=== PATIENT | male | born 1950 | race Caucasian/White ===

== ENCOUNTER → 2016-12-07 07:31 | Outpatient (CLI) | payer MEDICARE, OTHER ==
[2012-07-17 06:18] VITALS: BMI 38.0
== END | disposition home or self-care (01) ==
LOC: D.CT 07:31
DX: J39.8 Other specified diseases of upper respiratory tract (principal)

== ENCOUNTER 2019-05-01 11:21 | Emergency (ER) | payer MEDICARE, OTHER ==
[~2019-05-01] VITALS: Ht 182.9 cm; Wt 113.6 kg
[2019-05-01 11:29] VITALS: Ht 182.9 cm; Wt 113.6 kg
[2019-05-01] MEDS ORDERED: DEXILANT30 MG PO (11:32)
[2019-05-01] MEDS ORDERED: ADIPEX-P37.5 M1 PO (11:32)
[2019-05-01] MEDS ORDERED: NORVASC2.5 MG PO (11:32)
[2019-05-01 11:53] LABS: BASOPHILS 0.1 % (0-2); EOSINOPHILS 0.8 % (0-7); HEMATOCRIT 46.8 % (42.0-54.0); HEMOGLOBIN 16.4 g/dL (13.5-17.5); IMMATURE GRANULOCYTES 0.8 % (0-5); LYMPHOCYTES 15.1 % (15-50); MCH 32.7 pg (26.0-34.0); MCV 93.2 fL (80.0-100.0); MEAN PLATELET VOLUME 10.2 fL (7.4-10.4); NEUTROPHILS 71.2 % (40-80); PLATELET COUNT 190 10x3/uL (130-400); RBC 5.02 10x6/uL (4.20-6.10); RDW 13.2 % (11.5-14.5); WBC 7.9 10x3/uL (4.8-10.8)
[2019-05-01 12:05] LABS: ALBUMIN 3.3 g/dL (3.4-5.0); ALKALINE PHOSPHATASE 63 U/L (46-116); ALT (SGPT) 24 U/L (10-68); APTT 28.8 SECONDS (22.8-39.4); BILIRUBIN - TOTAL 0.63 mg/dL (0.2-1.3); CALC OSMOLALITY 276 mosm/kg (275-300); CALCIUM 8.1 mg/dL (8.5-10.1); CARBON DIOXIDE 30.3 mmol/L (21.0-32.0); CHLORIDE - SERUM 103 mmol/L (98-107); CREATININE - SERUM 1.1 mg/dL (0.6-1.3); GLUCOSE 96 mg/dL (74-106); INR 1.04 (0.85-1.17); POTASSIUM - SERUM 3.9 mmol/L (3.5-5.1); PROTEIN - SERUM 6.7 g/dL (6.4-8.2); PROTIME 13.1 SECONDS (11.6-15.0); SODIUM 138 mmol/L (136-145); UREA NITROGEN 16 mg/dL (7-18); eGFR NON AFRICAN AMERICAN 71 mL/min (90-120)
[2019-05-01 12:17] LABS: CKMB 1.2 U/L (0.0-3.6); CREATINE KINASE 64 UL (21-232)
[2019-05-01 12:19] LABS: TROPONIN-I < 0.017 ng/mL (0.000-0.060)
[2019-05-01 13:02] VITALS: BP 141/84
--- NOTE | 2019-05-04 14:34 | EC ---
PATIENT:FER TREVIÑO DATE OF SERVICE: 05/01/19 SEX: M MEDICAL RECORD: [id number] DATE OF : [birth year] LOCATION:D.ER AGE OF PATIENT: 68 ADMISSION DATE: 05/01/19 REFERRING PHYSICIAN: INTERPRETING PHYSICIAN: GIN BOLIVAR MD ECHOCARDIOGRAM REPORT ECHO CHARGES 4 ECHO COMPLETE Date: 05/01/19 CLINICAL DIAGNOSIS: ABNORMAL EKG ECHOCARDIOGRAPHIC MEASUREMENTS (adult normal given) AC root (d.<3.7cm) 4.1 cm LV Septum d (<1.2 cm> 1.4 cm Valve Excursion 2.3 cm LV Septum (systole) 1.8 cm Left Atria (s.<4.0cm> 4.0 cm LVPW d(<1.2cm) 1.2 cm RV (d.<2.3cm) 2.3 cm LVPW (sytole) 1.9 cm LV diastole(<5.6CM) 7.0 cm MV E-F(>70mm/sec) cm LV systole 5.2 cm LVOT Diameter 2.4 cm MV exc.(>10mm) cm Est.ejection fraction (50-75%) % DOPPLER: LVIT cm/sec A 103 cm/sec E 80.0 cm/sec LA cm/sec RVSP 28.1 mmHg LVOT 71.0 cm/sec AOP1/2T m/s Asc. Ao 133 cm/sec RVOT 62.0 cm/sec RA cm/sec PA 73.0 cm/sec AV Gradient Peak 7.1 mmHg AV Mean 4.2 mmHg AV Area 2.8 cm MV Gradient Peak 6.6 mmHg MV Mean 2.8 mmHg MV Area cm COMMENTS: Wet Suit Gluer: 1 FREDI ALVESOE Triage Specialist: 1 Dr. Bolivar TAPE# PACS Pericardial Effusion N DATE OF SERVICE: FINDINGS: 1. Left ventricular chamber size is dilated. Left ventricular systolic function is markedly reduced at 20%. 2. Left atrium is at the upper limits of normal at 4.0 cm. Right atrium and right ventricular chamber sizes are moderately dilated. 3. Valvular structures: Aortic valve demonstrates calcific aortic sclerosis but no significant aortic stenosis is present. Remaining valvular structures have normal structure and motion. ECHOCARDIOGRAM REPORT [id number] FER TREVIÑO 4. Doppler interrogation reveals moderate mitral regurgitation, no other valvular insufficiency or stenosis. Pulmonary systolic pressure is estimated at 28 mmHg. 5. Inferior vena cava is dilated and there does appear to be thrombus in the inferior vena cava. 6. No evidence of pericardial effusion or left ventricular thrombus. TRANSINT:[id number] Voice Confirmation ID: [id number] DOCUMENT ID: [id number] GIN BOLIVAR MD at 1434 CC: MAGALY PRITCHARD [id number] DICTATION DATE: 05/01/19 1437 LENS BLANK GAUGER: 05/02/19 0007 DEP ER 05/01/19 [facility] [address] [place] [address]
--- NOTE | 2019-05-04 14:34 | CN ---
PATIENT NAME:FER TREVIÑO MEDICAL RECORD: [id number] : 52 LOCATION:.ER ADMIT DATE: ACCOUNT: [id number] CONSULTING PHYSICIAN: GIN VELAZQUEZ MD REFERRING PHYSICIAN: ARASH PATEL MD DATE OF CONSULTATION: 05/01/2019 CARDIOLOGY CONSULT DIAGNOSES: 1. Shortness of breath -- dyspnea on exertion. 2. Hypertension. 3. Tachycardia. 4. Abnormal ECG. HISTORY OF PRESENT ILLNESS: This is a gentleman who was seen by Dr. Vargas today, sent to the Emergency Room. He had 2-3 week history of shortness of breath. His EKG is with a left bundle branch block. We have no old EKG for comparison. He is not having any chest pain or chest discomfort. Heart rate is in the 100 range, sinus tachycardia. Systolic blood pressures in the 140-160 range. He is only on Norvasc 2.5 mg every day. FAMILY HISTORY: Noncontributory from a cardiovascular standpoint, but does have a positive family history of hypertension. SOCIAL HISTORY: He works as a [employer]. He is a nonsmoker, nondrinker. REVIEW OF SYSTEMS: The patient reports easy bruising but reports no swollen glands. The patient reports no fever, no night sweats, no significant weight gain, no significant weight loss. No significant exercise tolerance. The patient reports no dry eyes, no irritation, no vision change. Patient reports no difficulty hearing and no ear pain. Patient reports no frequent nose bleeds or nose and sinus problems. Patient reports on arm pain on exertion. No shortness of breath while lying down. No history of heart murmur. Patient reports no cough, no wheezing or coughing up blood. Patient reports no abdominal pain, no vomiting. Normal appetite. No diarrhea and not vomiting blood. No nausea and no constipation. Patient reports no incontinence. No difficulty urinating. No hematuria. No increased frequency. Patient reports no muscle aches. No weakness, no arthralgias, no back pain. No swelling of the extremities. Patient reports no abnormal mole, no jaundice, no rashes. Reports no loss of consciousness. No weakness and no numbness. No seizures, dizziness, or headaches. The patient reports no depression, no sleep disturbance, feeling safe in a relationship and no alcohol abuse. Patient reports on fatigue. Reports no runny nose or sinus pressure. No itching, no hives, and no frequent sneezing. PHYSICAL EXAMINATION: CONSTITUTIONAL/GENERAL APPEARANCE: Well nourished, well developed, appears stated age. EYES: Lids and conjunctivae noninjected. No discharge. No pallor. ENT: Lips within normal limit. No cyanosis. No pallor. NECK: Carotid arteries, bilateral normal upstroke. No bruits. No thrills. No jugular venous pressure or distention. CERVICAL LYMPH NODES: Nontender. Nonenlarged. THYROID: Not enlarged. No nodules. CONSULT REPORT [id number] FER TREVIÑO CARDIOVASCULAR: Precordial exam, nondisplaced. No heaves or pericardial thrills. Rate and rhythm, regular. Heart sounds, normal S1, normal S2. No S3, no gallop, no rub. Systolic murmur, not heard. Diastolic murmur, not heard. RESPIRATORY: Respiratory effort, unlabored. Normal curvature. No thoracic deformity. No chest wall tenderness. Percussion, resonant. Auscultation, clear. No wheezes, no rales, no rhonchi. ABDOMEN: Soft, nondistended, nontender. No abdominal pain, no vomiting and normal appetite. MUSCULOSKELETAL: No joint tenderness, normal gait, normal tone. SKIN: Warm and dry. OVERALL IMPRESSION: Shortness of breath, dyspnea on exertion with an abnormal ECG, noncontrolled hypertension, and tachycardia. We will discontinue Norvasc, place him on Toprol-XL 50 mg daily. Risk stratify as an outpatient with stress testing Cardiolite imaging. TRANSINT:[id number] Voice Confirmation ID: [id number] DOCUMENT ID: [id number] GIN VELAZQUEZ MD at 1434 CC: [id number] DICTATION DATE: 05/01/19 1232 EXAMINING CHAIR ASSEMBLER: 05/01/19 1325 DEP ER 05/01/19 [facility] [address] [place] [address]
== END 2019-05-01 13:03 | disposition home or self-care (01) ==
LOC: D.ER 11:21
PROVIDERS: Emergency Medicine
DX: R06.09 Other forms of dyspnea (principal); I44.7 Left bundle-branch block, unspecified

== ENCOUNTER → 2019-05-11 07:32 | Outpatient (CLI) | payer MEDICARE, OTHER ==
[2019-05-01 11:29] VITALS: BMI 34.0
[~2019-05-11 07:32] MED LIST: ADIPEX-P37.5 M1 PO; COREG12.5 MG PO; DEXILANT30 MG PO; FUROSEMIDE20 MG PO; KCL; KLONOPIN0.5 MG PO; LISINOPRIL10 MG PO; NORVASC2.5 MG PO; POTASSIUM CHLOR8 ME1 PO; REVATIO20 MG PO; TOPROL XL50 MG PO
--- NOTE | 2019-05-14 13:30 | ST ---
PATIENT:FER TREVIÑO MEDICAL RECORD: [id number] SEX: M LOCATION:[facility] ORDER #: ADMISSION DATE: 05/11/19 AGE OF PATIENT: 68 REFERRING PHYSICIAN: INTERPRETING PHYSICIAN: GIN VELAZQUEZ MD DATE OF SERVICE: 05/11/2019 PROCEDURE: Nuclear stress test. INDICATIONS: Shortness of breath, abnormal ECG, angina. He was exercised on standard Lexiscan protocol with 33 mCi of sestamibi injected at peak stress, 11 mCi used previously for rest images. FINDINGS: Gated SPECT reveals a dilated left ventricle. Ejection fraction moderately reduced to severely reduced at 31%. SPECT imaging: Cardiolite was used for myocardial perfusion agent. There is a mixed perfusion defect anteriorly. There is a mixed fusion defect inferiorly and there is reversible ischemia laterally. The defect that is mixed inferiorly and anteriorly are partially fixed partial reversal and includes the basal, mid, apical inferior segments as well as the basal, mid, apical anterior segments. Reversibility is in the mid lateral and basal lateral segments. OVERALL IMPRESSION: This is a markedly abnormal high risk nuclear stress test with an ischemic cardiomyopathy, ejection fraction 31%, dilated LV perfusion defects that are partially fixed partially reversible throughout the anterior, inferior as well as pure reversibility in the lateral segments suggestive of multivessel coronary artery disease. TRANSINT:[id number] Voice Confirmation ID: [id number] DOCUMENT ID: [id number] GIN VELAZQUEZ MD at 1330 CC: BRITTON KING [id number] DICTATION DATE: 05/12/19 1225 DYNAMIC BALANCER SET UP WORKER: 05/13/19 0634 [facility] CLI 05/11/19 [place] [id number] [place] [id number]
[2019-05-20 10:04] VITALS: BMI 34.0
== END | disposition home or self-care (01) ==
LOC: D.HCCARDIO 07:32
PROVIDERS: ATTEND Internal Medicine Interventional Cardiology
DX: R06.02 Shortness of breath (principal); R94.30 Abnormal result of cardiovascular function study, unspecified; I20.9 Angina pectoris, unspecified

== ENCOUNTER 2019-05-20 09:31 | Outpatient (CLI) | payer MEDICARE, OTHER ==
[~2019-05-20] VITALS: Ht 182.9 cm; Wt 113.6 kg
--- NOTE | ~2019-05-20 | HEMODYNAMI ---
PATIENT:FER TREVIÑO MEDICAL RECORD: [id number] : 52 LOCATION:DSeniaCAT ADMISSION DATE: 05/20/19 Generatedon:05/20/201913:20 Patient name: FER TREVIÑO Patient #: [id number] SSN: [id number] : 1950 Date of study: 05/20/2019 Page: Of Hemodynamic Procedure Report Patient Data Patient Demographics Procedure consent was obtained First Name: FER Gender: Male Last Name: HUDSON : 1950 [facility] Initial: GRAEME Age: 69 year(s) Patient #: [id number] Race: SSN: [id number] Additional ID: [id number] Contact details [address]: [address] [place] [address] State: [place] City: [place] Zip code: [address] Past Medical History Performed procedures and imaging results Date Procedure Procedure Results Comments 05/11/2019 Stress testing Positive->Intermediate with SPECT MPI risk Allergies Allergen Reaction Date Comments Reported Other allergy 05/20/2019 PCNS/CEPHALOSPORINS Admission Admission Data Admission Date: 05/20/2019 Admission Time: 9:31 Arrival Date: 05/20/2019 Arrival Time: 0:00 Admit Source: Other Insurance Payor: Medicare [facility] #: [id number] Height (in.): 72.05 BSA: 2.35 (m2) Height (cm.): 183 BMI: 34.04 (kg/m2) Weight (lbs.): 251.33 Weight (kg.): 114 Lab Results Lab Result Date: 05/20/2019 Lab Result Time: 0:00 Biochemistry Name Units Result Min Max BUN mg/dl 14 --(--*-)-- 7 18 Creatinine mg/dl 1.1 --(--*-)-- 0.6 1.3 eGFR ml/min 70.01787 *-(----)-- 90 120 NONAFRICAN CBC Name Units Result Min Max Hemoglobin g/dl 16.5 --(--*-)-- 13.5 17.5 Procedure Procedure Types Cath Procedure Diagnostic Procedure [facility] w/Coronaries FFR/IVUS FFR Initial Sedation Charges Moderate Sedation up to 15 minutes Procedure Description Procedure Date Procedure Date: 05/20/2019 Procedure Start Time: 13:02 Procedure End Time: 13:18 Procedure Staff Name Function Demarcus Bolivar MD Performing Physician Peggy Carter RT Monitor Silke Vazquez RT Monitor Keegan Grande RN Nurse Cathy Mirza RT Scrub Procedure Data Cath Procedure Fluoroscopy Diagnostic fluoroscopy Total fluoroscopy Time: 3.6 time: 3.6 min min Diagnostic fluoroscopy Total fluoroscopy dose: 634 dose: 634 mGy mGy Contrast Material Contrast Material Type Amount (ml) Isovue 300 86 Entry Location Entry Primary Successful Side Size Upsize Upsize Entry Closure Sands ccessful Closure Location (Fr) 1 (Fr) 2 (Fr) Remarks Device Remarks Radial Right 6 Fr Mechanical artery Short Compression Estimated blood loss: 5 ml Diagnostic catheters Device Type Used For End Catheter Placement DIAGNOSTIC [place] 110cm 5 Procedure Fr catheter ([id number]) Procedure Complications No complications Procedure Medications Medication Administration Route Dosage 0.9% NaCl I.V. 100 ml/hr Oxygen etCO2 Nasal cannula 2 l/min Heparin Flush Bag added to field 2 bags (1000units/500ml NS) Lidocaine 2% added to field 20 Radial Cocktail added to field 1 syringe (Verapamil 2mg/Nitro 400mcg/Heparin 1500units) Versed I.V. 2 mg Fentanyl I.V. 50 mcg Radial Cocktail I.A. 1 syringe (Verapamil 2mg/Nitro 400mcg/Heparin 1500units) Hemodynamics Rest BSA: 2.35 (m2) HGB: 16.5 (g/dl) O2 Consumption: Estimated: 268.68 (ml/min) O2 Co nsumption indexed: Estimated:114.33 (ml/min/m) Heart Rate: 65 (bpm) Snapshots Pre Cath Intra NCS Post Cath Vital Signs Time Heart Resp SPO2 etCO2 NIBP (mmHg) Rhythm Pain Sedation Rate (ipm) (%) (mmHg) Status Level (bpm) 12:27:54 71 11 99 0 161/90(127) NSR 0 (11) 10(A) , No pain 12:32:16 63 17 99 35.4 145/98(126) NSR 0 (11) 10(A) , No pain 12:36:38 67 20 98 0 153/90(110) NSR 0 (11) 10(A) , No pain 12:40:54 72 18 96 0 142/82(114) NSR 0 (11) 10(A) , No pain 12:45:12 71 18 96 15.8 150/87(112) NSR 0 (11) 10(A) , No pain 12:49:34 71 18 96 12.8 143/83(111) NSR 0 (11) 10(A) , No pain 12:53:53 73 19 97 17.3 134/96(108) NSR 0 (11) 10(A) , No pain 12:58:09 81 21 97 18 129/89(102) NSR 0 (11) 9(A) , No pain 13:02:25 80 19 99 0 135/91(107) NSR 0 (11) 9(A) , No pain 13:06:45 88 22 95 19.5 120/71(90) NSR 0 (11) 9(A) , No pain 13:11:03 86 19 97 35.3 122/77(99) NSR 0 (11) 10(A) , No pain 13:15:19 82 19 97 15 135/82(103) NSR 0 (11) 10(A) , No pain Medications Time Medication Route Dose Verified Delivered Reason Notes Effectiveness by by 12:33:02 0.9% NaCl I.V. 100 Keegan Keegan Per ml/hr Christiane Grande physician RN RN 12:33:12 Oxygen etCO2 2 l/min Keegan Keegan for low 02 Nasal Lorigan Lorigan sats cannula RN RN 12:33:23 Heparin Flush added 2 bags Keegan Keegan used for Bag to Lorigan Lorigan procedure (1000units/500ml field RN RN NS) 12:33:35 Lidocaine 2% added 20ml Keegan Keegan for local to vial Lorigan Lorigan anesthetic field OREILLY RN 12:33:55 Radial Cocktail added 1 Keegan Keegan used for (Verapamil to syringe Lorigan Lorigan procedure 2mg/Nitro field RN RN 400mcg/Heparin 1500units) 12:55:50 Versed I.V. 2 mg Keegan Keegan for sedation Lorigan Lorigan RN RN 12:56:01 Fentanyl I.V. 50 mcg Keegan vazquez sedation Christiane Grande RN RN 13:03:21 Radial Cocktail I.A. 1 Keegan Tracy for (Verapamil syringe Christiane Bolivar MD vasodilation 2mg/Nitro RN 400mcg/Heparin 1500units) Procedure Log Time Note 12:13:02 Informed consent obtained and on chart 12:17:23 ACC Patient presents with No angina; no symptoms CCS Anginal Class 0--No symptoms, no angina. 12:17:31 Procedure Status Elective Heart Cath (OP). 12:17:35 Keegan Grande RN sent for patient. Start room use. 12:17:38 Time tracking: Regular hours (M-F 7:00 - 5:00) 12:17:45 Plan of Care:Hemodynamics will remain stable., Cardiac rhythm will remain stable., Comfort level will be maintained., Respiratory function will remain adequate., Patient/ family verbilizes understanding of procedure., Procedure tolerated without complication., Recovers from procedure without complications.. 12:20:33 Lab Result : eGFR NONAFRICAN 70.03558 ml/min 12:20:33 Lab Result : Creatinine 1.1 mg/dl 12:20:33 Lab Result : BUN 14 mg/dl 12:20:33 Lab Result : Hemoglobin 16.5 g/dl 12:21:51 Arrival Date: 05/20/2019 12:00:00 AM 12:22:17 Insurance Payor : Medicare 12:22:19 Admit Source: Other 12:22:27 Patient Height : 72.05 inches 12:22:34 Patient Weight : 251.33 lbs 12:22:58 Patient received from Pre/Post Procedure Room to [facility] 1 Alert and oriented. Tansferred to table in Supine position. 12:23:01 Warm blankets applied, and willem hugger turned on for patient comfort. 12:23:02 Correct patient and procedure confirmed by team. 12:23:04 ECG and BP/O2 sat monitors applied to patient. 12:26:34 Vital chart was started 12:26:47 Rhythm: sinus rhythm 12:26:50 Full Disclosure recording started 12:26:52 - 12:27:02 H&P Date Dictated: 05/20/2019 H&P Addendum completed by physician on da y of procedure. (MUST COMPLETE FOR ALL OUTPATIENTS), New H&P dictated by physician.. 12:27:05 Pre-procedure instructions explained to patient. 12:27:06 Pre-op teaching completed and patient verbalized understanding. 12:27:10 Family in waiting room. 12:27:12 Patient NPO since Midnight. 12:27:53 Patient allergic to Other allergyPCNS/CEPHALOSPORINS 12:27:58 Is the patient allergic to Iodine/contrast media? No. 12:30:57 Is patient on blood thinner?No 12:31:01 Patient diabetic? No. 12:31:04 ----Pre-sedation anethsthesia assessment.---- 12:31:07 Previous problem with sedation/anesthesia? No ? 12:31:11 Snore? Yes 12:31:15 Sleep apnea? No 12:31:21 Deviated septum? No 12:31:22 Opens mouth fully? Yes 12:31:25 Sticks out tongue? Yes 12:31:28 Airway obstruction? No ? 12:31:32 Dentures? Yes,PARTIAL IN TIGHT? 12:32:08 Pre procedure: right dorsailis pedis pulse 1+ Palpable, but thready & weak; easily obliterated 12:32:12 Pre procedure: left dorsailis pedis pulse 1+ Palpable, but thready & weak; easily obliterated 12:32:17 Modified Dalton's test Ulnar < 7 seconds 12:32:28 Patient pain scale 0/10 ?. 12:32:42 IV patent on arrival in left antecubital with 0.9% NaCl at [facility]. 12:32:51 Lab results completed and on chart. 12:33:01 Risk of Mortality: 0.1 12:33:02 0.9% NaCl 100 ml/hr I.V. was administered by Keegan Grande RN; Per physician; Verbal order read back and verified. 12:33:07 Risk of blood transfusion: 0.2 12:33:12 Oxygen 2 l/min etCO2 Nasal cannula was administered by Keegan Lorigan RN; for low 02 sats; Verbal order read back and verified. 12:33:13 Risk of BILL: 0.7 12:33:19 Right Radial & Right Groin area was prepped with chlora-prep and draped in sterile fashion 12:33:22 Alarms reviewed by R. N. 12:33:22 Sharps counted by scrub and verified by R.N. 12:33:23 Heparin Flush Bag (1000units/500ml NS) 2 bags added to field was administered by Keegan Grande RN; used for procedure; Verbal order read back and verified. 12:33:35 Lidocaine 2% 20ml vial added to field was administered by Keegan Grande RN; for local anesthetic; Verbal order read back and verified. 12:33:55 Radial Cocktail (Verapamil 2mg/Nitro 400mcg/Heparin 1500units) 1 syring e added to field was administered by Keegan Grande RN; used for procedure; Verbal order read back and verified. 12:34:23 Use device set Radial Dx or PCI 12:34:26 ACIST Syringe (27812) opened to sterile field. 12:34:26 Medline Cath Pack ([id number]) opened to sterile field. 12:34:27 Bag Decanter (2002) opened to sterile field. 12:34:29 ACIST Hand Control (05536) opened to sterile field. 12:34:29 ACIST Manifold (22411) opened to sterile field. 12:34:30 Tegaderm 4 x 4 (1626W) opened to sterile field. 12:34:31 MBrace Wrist Support (506712517) opened to sterile field. 12:34:36 EMERALD Guide Wire (521-099) opened to sterile field. 12:34:37 SHEATH 6FR RAIN (9686017) opened to sterile field. 12:38:36 Zero performed for pressure channel P1 12:42:55 Baseline sample Acquired. 12:53:49 Physical assessment completed. ASA score P 2 - A patient with mild systemic disease as per Demarcus Bolivar MD. 12:53:56 2) 60-89 Mildly reduced kidney function, and other findings (as for stage 1) point to kidney disease. 12:54:04 Maximum allowable contrast dose (3.7 X eGFR X 0.75)197 ml. 12:54:10 Sedation plan: IV Moderate Sedation Medication:Versed, Fentanyl 12:54:11 --------ALL STOP TIME OUT------ 12:54:54 Final Timeout: patient, procedure, and site verified with staff and physician. All members of the team are in agreement. 12:55:50 Versed 2 mg I.V. was administered by Keegan Grande RN; for sedation; Verbal order read back and verified. 12:56:01 Fentanyl 50 mcg I.V. was administered by Keegan Grande RN; for sedation; Verbal order read back and verified. 13:00:04 Right Radial & Right Groin site verified by team. 13:00:18 Fire Safety Assessment: A--An alcohol-based skin anteseptic being used preoperatively., C--Open oxygen or nitrous oxide is being used., D--An ESU, laser, or fiber-optic light is being used. 13:02:09 Procedure started. 13:02:15 Local anesthetic to right radial artery with Lidocaine 2% by Demarcus Bolivar MD.INITIAL ACCESS ONLY 13:02:28 A 6 Fr Short sheath was inserted into the Right Radial artery 13:02:35 A DIAGNOSTIC [place] 110cm 5 Fr catheter (412629) was advanced over the wire and used for Procedure. 13:03:21 Radial Cocktail (Verapamil 2mg/Nitro 400mcg/Heparin 1500units) 1 syring e I.A. was administered by Demarcus Bolivar MD; for vasodilation; Verbal order read back and verified. 13:03:57 LV gram done using GUTIERREZ 13:04:02 Injector settings: Ml/sec: 5, Volume: 15, 13:04:15 EF : 30 % 13:04:30 RCA angiography performed. 13:04:37 Injector settings: Ml/sec: 3, Volume: 5, 13:05:14 UNABLE TO CANULATE LCA. 13:05:48 Catheter exchanged over wire. 13:07:27 GUIDE 6FR XBLAD 4.0 catheter (62528844) opened to sterile field. 13:08:13 6 Fr XBLAD4 guide catheter was inserted over the wire 13:08:24 LCA angiography performed. 13:08:26 Catheter exchanged over wire. 13:08:57 World Firstrata Plus pressure wire (15361D) opened to sterile field. 13:08:59 INFLATOR Merit Nanciepak (KM8973) opened to sterile field. 13:10:08 GUIDE 6FR AR 2.0 catheter (QG0EV46) opened to sterile field. 13:10:31 6 Fr AR2 guide catheter was inserted over the wire 13:10:37 FFR/IFR wire advanced. 13:10:40 Wire advanced across lesion. 13:12:08 mRCA lesion measured at 1.0 with IFR 13:12:26 Wire removed. 13:12:27 Guide catheter removed. 13:12:45 ZEPHYR REGULAR TR BAND (826308) opened to sterile field. 13:12:59 Procedure ended.(Physican Out) 13:13:09 Sheath removed intact; hemostasis achieved with Mechanical Compression to the Right Radial artery. 13:13:37 Fluoroscopy time 03.60 minutes. 13:13:45 Fluoroscopy dose: 634 mGy 13:13:45 Flurop Dose total: 634 13:13:55 Dose Area Product 08769 mGy/cm. 13:14:02 Contrast amount:Isovue 300 86ml. 13:14:06 Maximum allowable dose exceeded? No. 13:14:07 Sharps counted by scrub and verified by R.N. 13:14:14 Bluebell band inflated with 10cc of air. 13:14:15 Insertion/operative site no bleeding no hematoma. 13:14:21 Post-op/insertion site Right Radial artery dressed using a 4 x 4 and Tegaderm. 13:14:25 Post Procedure Pulses reassessed and unchanged 13:14:33 Post-procedure physical assessment completed. ASA score P 2 - A patient with mild systemic disease as per Demarcus Bolivar MD. 13:14:51 Post procedure rhythm: sinus rhythm 13:14:56 Estimated blood loss: 5 ml 13:15:00 Post procedure instruction explained to patient.Patient verbalizes understanding. 13:15:02 Patient needs reinforcement of post procedure teaching. 13:16:23 Procedure type changed to Cath procedure, Diagnostic procedure, LHC, LH C w/Coronaries, FFR/IVUS, FFR Initial, Sedation Charges, Moderate Sedation up to 15 minutes 13:16:26 Procedure and supply charges have been captured, reviewed, submitted an d are correct. 13:18:10 Procedure Complication : No complications 13:18:13 Vital chart was stopped 13:18:27 [facility] Findings: mild to moderate CAD (<70%) 13:18:32 Operative report dictated upon procedure completion. 13:18:33 See physician's report for complete and final results. 13:18:39 Report given to Pre/Post Procedure Room. 13:18:44 Patient transfered to Pre/Post Procedure Room with Stretcher. 13:18:47 Procedure ended. 13:18:47 Full Disclosure recording stopped 13:18:51 End room use (Document Last) Device Usage Item Name Manufacture Quantity Catalog Hospital Part Current Mini mal Lot# / Number Charge Number Stock Stock Serial# Code ACIST Acist 1 [id number] [id number] 595678 314181 20 Syringe Medical (01156) Systems Inc Medline Medline 1 [id number] 431757 12918 012040 5 Cath Pack ([id number]) Bag Microtek 1 2001S 944995 22733 614824 5 Decanter Medical Inc. () ACIST Hand Acist 1 80712 523553 695870 144419 5 Control Medical (60581) Systems Inc ACIST Acist 1 96737 492885 423221 928012 5 Manifold Medical (55205) Systems Inc Tegaderm 4 3M 1 1626W 211161 444998 416987 5 x 4 (1626W) MBrace Advanced 1 140-0250-00 865453 32007 004522 5 Wrist Vascular Support Dynamics ([id number]) [facility] Cardinal 1 502-455 852598 185952 783576 5 Guide Wire [facility] (502-455) SHEATH 6FR Cardinal 1 [id number] 284703 0506726 257912 5 [facility] (1480216) DIAGNOSTIC Terumo 1 40-5013 083686 869281 634489 5 [place] 110cm 5 Fr catheter (958040) GUIDE 6FR Cardinal 1 [id number] 808048 588830 142316 3 XBLAD 4.0 Health catheter (10611220) Grandin Grandin 1 72407J 208839 [id number] 724992 5 Verrata Plus pressure wire (80646L) INFLATOR Merit 1 EC3051 088245 153202 859963 15 DewMobile Medical BasixCompak (EK0151) GUIDE 6FR Medtronic 1 [id number] 771118 71849 456741 1 AR 2.0 catheter (EW2HF14) ZEPHYR Cardinal 1 619649 695887 7693961 551789 5 REGULAR TR Health BAND (420497) Signature Audit [place] Stage Time Signature Unsigned Intra-Procedure 05/20/2019 Silke 1:19:25 PM George RT(R) (CV) Intra-Procedure 05/20/2019 Keegan 1:20:11 PM Christiane OREILLY Intra-Procedure 05/20/2019 Demarcus Bolivar 1:20:36 PM [place] [id number] [place] [address]
[~2019-05-20 09:31] MED LIST changes: -COREG12.5 MG PO; -FUROSEMIDE20 MG PO; -KCL; -KLONOPIN0.5 MG PO; -LISINOPRIL10 MG PO; -POTASSIUM CHLOR8 ME1 PO; -REVATIO20 MG PO; -TOPROL XL50 MG PO
[2019-05-20] MEDS ORDERED: KLONOPIN0.5 MG PO (09:53)
[2019-05-20] MEDS ORDERED: TOPROL XL50 MG PO (09:54)
[2019-05-20] MEDS ORDERED: REVATIO20 MG PO (09:55)
[2019-05-20 10:04] VITALS: BP 144/90; Ht 182.9 cm; Wt 113.6 kg
[2019-05-20 10:11] LABS: BASOPHILS 0.2 % (0-2); HEMOGLOBIN 16.5 g/dL (13.5-17.5); IMMATURE GRANULOCYTES 0.4 % (0-5); LYMPHOCYTES 23.8 % (15-50); MCH 33.1 pg (26.0-34.0); MCHC 35.1 g/dL (31.0-37.0); MCV 94.2 fL (80.0-100.0); MEAN PLATELET VOLUME 9.7 fL (7.4-10.4); MONOCYTES 13.8 % (2-11); NEUTROPHILS 59.8 % (40-80); PLATELET COUNT 207 10x3/uL (130-400); RBC 4.99 10x6/uL (4.20-6.10); RDW 12.5 % (11.5-14.5)
[2019-05-20 10:31] LABS: ANION GAP 10.1 mmol/L (8-16); CALCIUM 8.4 mg/dL (8.5-10.1); CREATININE - SERUM 1.1 mg/dL (0.6-1.3); POTASSIUM - SERUM 4.1 mmol/L (3.5-5.1)
[2019-05-20 10:42] LABS: LDL-HDL RATIO 2.6 ratio (1.5-3.5)
--- NOTE | 2019-05-20 13:20 | NUR ---
PT RECEIVED VIA STRETCHER FROM SHOOTING GALLERY OPERATOR FOR RECOVERY. PT AWAKE AND ALERT. IV PATENT INFUSING VIA ORDERS. PT PLACED ON CARDIAC MONITORS, O2 AT 2L/NC. HR NSR RATE 83, BP 124/77, RR 17, SAT 99. ZYPHER BAND AND IMMOBILIZER TO R WRIST, DRESSING CDI NO BLEEDING OR HEMATOMA NOTED. ARM PINK AND WARM, CAP REFILL BRISK. PT DENIES PAIN OR DISCOMFORT. FAMILY AT BEDSIDE TALKING W DR VELAZQUEZ REGARDING PLAN OF CARE. CALL LIGHT IN REACH
[2019-05-20] MEDS ORDERED: COREG12.5 MG PO (13:24)
[2019-05-20] MEDS ORDERED: FUROSEMIDE20 MG PO (13:24)
[2019-05-20] MEDS ORDERED: LISINOPRIL10 MG PO (13:24)
[2019-05-20] MEDS ORDERED: KCL (13:27)
[2019-05-20] MEDS ORDERED: POTASSIUM CHLOR8 ME1 PO (13:28)
--- NOTE | 2019-05-20 13:45 | NUR ---
PT RESTING COMFORTABLY, DENIES PAIN OR DISCOMORT. Z BAND AND IMMOBIZER IN PLACE, DRESSING CDI NO BLEEDING OR SWELLING NOTED. ARM PINK AND WARM, CAP REFILL BRISK. IV INFUSING VIA ORDERS. FAMILY AT BEDSIDE. SANDWICH TRAY AND FLUIDS TOLERATED W/O NAUSEA. CALL LIGHT IN REACH
--- NOTE | 2019-05-20 14:27 | NUR ---
3CC AIR REMOVED FROM ZYPHER BAND, NO BLEEDING OR HEMATOMA NOTED. DRESSING REMAINS CDI. VSS. FAMILY AT BEDSIDE, PT DENIES PAIN OR NEEDS AT THIS TIME. CALL LIGHT IN REACH
--- NOTE | 2019-05-20 14:54 | NUR ---
4 ADD'L CC OF AIR REMOVED FROM Z BAND, NO BLEEDING NOTED. DRESSING REMAINS CDI. ARM PINK AND WARM, CAP REFILL BRISK. HR 79, BP 144/74, RR 17, O2 SAT 98. CALL LIGHT IN REACH, FAMILY AT BEDSIDE.
--- NOTE | 2019-05-20 15:12 | NUR ---
DISCHARGE INSTRUCTIONS REVIEWED W PT AND DAUGHTER, QUESTIONS ANSWERED. DISCUSSED MEDICATION CHANGES AND IMPORTANCE OF GETTING FILLED. IV REMOVED W CATH INTACT, MONITORS REMOVED. PT UP TO DRESS FOR DISCHARGE
--- NOTE | 2019-05-20 15:15 | NUR ---
PT AMBULATED TO BR, VOIDING W/O DIFFICULITY 1520 REMAINING AIR AND Z BAND REMOVED W/O BLEEDING. 2X2 AND TEGADERM DRESSING APPLIED. PT DISCHARGED TO FAMILY WAITING IN PRIVATE VEHICLE. PT HAD ALL BELONGINGS AND DISCHARGE PAPERS IN HAND
--- NOTE | 2019-05-22 13:28 | HP ---
PATIENT: FER TREVIÑO MEDICAL RECORD: [id number] ACCOUNT: [id number] LOCATION:[facility] : 52 ADMISSION DATE: 05/20/19 PCP: GRAHAM KING MD HISTORY AND PHYSICAL EXAMINATION DIAGNOSES: 1. Angina. 2. Shortness of breath, dyspnea on exertion. 3. Hypertension. 4. Abnormal nuclear stress test. HISTORY OF PRESENT ILLNESS: Mr. Treviño presents with anginal symptomatology, found to have an ischemic cardiomyopathy, ejection fraction 30%, on nuclear stress test, 20% on echo with perfusion defects inferiorly, anteriorly and laterally suggestive of multivessel coronary artery disease, is now brought for cardiac catheterization. PHYSICAL EXAMINATION: CONSTITUTIONAL/GENERAL APPEARANCE: Well nourished, well developed, appears stated age. EYES: Lids and conjunctivae noninjected. No discharge. No pallor. ENT: Lips within normal limit. No cyanosis. No pallor. NECK: Carotid arteries, bilateral normal upstroke. No bruits. No thrills. No jugular venous pressure or distention. CERVICAL LYMPH NODES: Nontender. Nonenlarged. THYROID: Not enlarged. No nodules. CARDIOVASCULAR: Precordial exam, nondisplaced. No heaves or pericardial thrills. Rate and rhythm, regular. Heart sounds, normal S1, normal S2. No S3, no gallop, no rub. Systolic murmur, not heard. Diastolic murmur, not heard. RESPIRATORY: Respiratory effort, unlabored. Normal curvature. No thoracic deformity. No chest wall tenderness. Percussion, resonant. Auscultation, clear. No wheezes, no rales, no rhonchi. ABDOMEN: Soft, nondistended, nontender. No abdominal pain, no vomiting and normal appetite. MUSCULOSKELETAL: No joint tenderness, normal gait, normal tone. SKIN: Warm and dry. OVERALL IMPRESSION: Ischemic cardiomyopathy, symptomatic. We will proceed with coronary angiography. Further care depends upon findings of the angiography. TRANSINT:[id number] Voice Confirmation ID: [id number] DOCUMENT ID: [id number] GIN VELAZQUEZ MD at 1328 CC: [id number] DICTATION DATE: 05/20/19 1300 TELEVISION RECEIVER ANALYZER: 05/20/19 1306 DEP CLI 05/20/19 [id number] [place] [address]
--- NOTE | 2019-06-10 14:07 | OP ---
PATIENT NAME: FER TREVIÑO MEDICAL RECORD: [id number] :52 LOCATION:D.CAT ADMISSION DATE: SURGEON: GIN VELAZQUEZ MD DATE OF OPERATION: 05/20/2019 PROCEDURE: Cardiac catheterization. INDICATION: Angina and coronary artery disease. PROCEDURE IN DETAIL: After informed consent was obtained and after a detailed description of risks, benefits as well as alternative therapies, the patient elected to proceed with angiogram and heart catheterization. The right radial area was prepped and draped in normal sterile fashion. Right radial artery was cannulated via modified Seldinger technique with placement of 6-Telugu sheath. All catheters exchanged through this sheath. FINDINGS: Left ventriculogram was performed in standard 30-degree GUTIERREZ view, reveals global hypokinesis. Overall ejection fraction in the 30% range. SELECTIVE CORONARY ANGIOGRAPHY: Left main, left anterior descending, left circumflex, right coronary artery are all widely patent vessels with only moderate irregularities, no flow-limiting stenosis. OVERALL IMPRESSION: Nonischemic cardiomyopathy, ejection fraction in the 30% range with minimal coronary artery disease present. TRANSINT:[id number] Voice Confirmation ID: [id number] DOCUMENT ID: [id number] GIN VELAZQUEZ MD at 1407 CC: [id number] DICTATION DATE: 06/04/19 1202 CUSTOMER SERVICE RECEPTIONIST: 06/04/19 1237 DEP CLI 05/20/19 [facility] [address] [place] [address]
== END 2019-05-20 15:20 | disposition home or self-care (01) ==
LOC: D.CATH 09:31
PROVIDERS: ATTEND Internal Medicine Interventional Cardiology
DX: I25.5 Ischemic cardiomyopathy (principal); I10 Essential (primary) hypertension; R94.30 Abnormal result of cardiovascular function study, unspecified